=== PATIENT | male | born 1950 | race Caucasian/White ===

== ENCOUNTER 2016-12-29 10:18 | Emergency (ER) | payer MEDICARE ==
[~2016-12-29] VITALS: Ht 175.3 cm; Wt 127.0 kg
[~2016-12-29 10:18] MED LIST: CIPR250S2 PO; CLON0.5T3 PO; CLON1TAB3 PO; FURO-68 PO; GABA-586 PO; GLIP10TA13 PO; HYDR-2762 PO; HYDR25TA9 PO; INSU100C SQ; INSU100V SQ; LOSA100T6 PO; LOSA1TAB18 PO; METF750T2 PO; METO50TA2 PO; SIMV20TA3 PO
--- NOTE | 2016-12-29 11:18 | PHYS DOC ---
Past Medical History Past Medical History: A-Fib, Diabetes-Type II, High Cholesterol, Hypertension, Other Additional Past Medical Histor: chronic pain, neuropathy Past Surgical History: Angioplasty, Cholecystectomy Additional Past Surgical Histo: ADRENLIN GLAND REMOVED, RIGHT SHOULDER , CARDIAC ABLATION Alcohol Use: None Drug Use: None Adult General Chief Complaint Chief Complaint: CHEST PAIN HPI HPI Patient is a 66 year old male who presents with complaint of left shoulder and chest pain for the past 3 weeks. Patient states that he first noticed discomfort along his left side after he was using a drill at home while working on a door. Patient states that later that night he noticed numbness and tingling in the shoulder and hand. Patient states that the symptoms have been persistent throughout this time. Patient states that the symptoms seem to worsen at rest and go away with normal activity. Patient states that due to the length of time the symptoms have been present, he felt he needed to be seen to make sure that he didn't have any more worrisome problems. Patient states he has history of atrial fibrillation, type 2 diabetes mellitus, and hypertension. Patient follows a Dr. Arvizu for primary care. Patient denies any associated nausea, shortness of breath, or diaphoresis with his pain. Patient states that he has a prescription of hydrocodone for treatment of pain at home and states that this seems to help with his symptoms, however they do return when the medication wears off. Review of Systems Review of Systems Constitutional: Denies fever or chills [] Eyes: Denies change in visual acuity, redness, or eye pain [] HENT: Denies nasal congestion or sore throat [] Respiratory: Denies cough or shortness of breath [] Cardiovascular: Chest pain [] GI: Denies abdominal pain, nausea, vomiting, bloody stools or diarrhea [] : Denies dysuria or hematuria [] Musculoskeletal: Left shoulder pain [] Integument: Denies rash or skin lesions [] Neurologic: Denies headache, focal weakness or sensory changes [] Endocrine: Denies polyuria or polydipsia [] Current Medications Current Medications Current Medications Medications (Trade) Dose Ordered Sig/Daniel Start Time Stop Time Status Last Admin Dose Admin Aspirin (Children'S Aspirin) 324 mg 1X ONCE 12/29/16 11:30 12/29/16 11:31 DC 12/29/16 11:53 324 MG Allergies Allergies Allergies Coded Allergies Type Severity Reaction Last Updated Verified No Known Drug Allergies 04/10/14 No Physical Exam Physical Exam Constitutional: Alert, obese, afebrile, no acute distress. [] HENT: Normocephalic, atraumatic, bilateral external ears normal, oropharynx moist, no oral exudates, nose normal. [] Eyes: PERRLA, EOMI, conjunctiva normal, no discharge. [] Neck: Normal range of motion, no tenderness, supple, no stridor. [] Cardiovascular:Heart rate regular rhythm, no murmur [] Lungs & Thorax: Bilateral breath sounds clear to auscultation [] Abdomen: Bowel sounds normal, soft, no tenderness, no masses, no pulsatile masses. [] Skin: Warm, dry, no erythema, no rash. [] Back: No tenderness, no CVA tenderness. [] Extremities: No tenderness, no cyanosis, no clubbing, ROM intact, no edema. [] Neurologic: Alert and oriented X 3, normal motor function, normal sensory function, no focal deficits noted. [] Current Patient Data Vital Signs Vital Signs Date Time Temp Pulse Resp B/P Pulse Ox O2 Delivery O2 Flow Rate FiO2 12/29/16 13:30 91 22 122/70 97 Room Air 12/29/16 10:31 97.9 97.9 Lab Values Laboratory Tests Test 12/29/16 10:43 White Blood Count 13.2x10^3/uL (4.0-11.0) H Red Blood Count 5.11x10^6/uL (4.30-5.70) Hemoglobin 14.5g/dL (13.0-17.5) Hematocrit 44.6% (39.0-53.0) Mean Corpuscular Volume 87fL (79-100) Mean Corpuscular Hemoglobin 28pg (25-35) Mean Corpuscular Hemoglobin Concent 33g/dL (31-37) Red Cell Distribution Width 14.3% (11.5-14.5) Platelet Count 251x10^3/uL (140-400) Neutrophils (%) (Auto) 71% (31-73) Lymphocytes (%) (Auto) 20% (24-48) L Monocytes (%) (Auto) 6% (0-9) Eosinophils (%) (Auto) 2% (0-3) Basophils (%) (Auto) 1% (0-3) Neutrophils # (Auto) 9.4x10^3uL (1.8-7.7) H Lymphocytes # (Auto) 2.6x10^3/uL (1.0-4.8) Monocytes # (Auto) 0.8x10^3/uL (0.0-1.1) Eosinophils # (Auto) 0.3x10^3/uL (0.0-0.7) Basophils # (Auto) 0.1x10^3/uL (0.0-0.2) Sodium Level 139mmol/L (136-145) Potassium Level 4.1mmol/L (3.5-5.1) Chloride Level 102mmol/L (98-107) Carbon Dioxide Level 29mmol/L (21-32) Anion Gap 8 (6-14) Blood Urea Nitrogen 15mg/dL (8-26) Creatinine 0.8mg/dL (0.7-1.3) Estimated GFR (Cockcroft-Gault) 96.7 Glucose Level 210mg/dL (70-99) H Calcium Level 9.3mg/dL (8.5-10.1) Magnesium Level 1.9mg/dL (1.8-2.4) Total Bilirubin 0.6mg/dL (0.2-1.0) Direct Bilirubin 0.1mg/dL (0.0-0.2) Aspartate Amino Transferase (AST) 15U/L (15-37) Alanine Aminotransferase (ALT) 29U/L (16-63) Alkaline Phosphatase 58U/L (46-116) Creatine Kinase 169U/L (39-308) Creatine Kinase MB (Mass) 2.5ng/mL (0.0-3.6) Creatine Kinase MB Relative Index 1.5% (0-4) Troponin I Quantitative < 0.017ng/mL (0.000-0.055) BU-Aya-Z-Type Natriuretic Peptide 184pg/mL (0-124) H Total Protein 7.3g/dL (6.4-8.2) Albumin 3.7g/dL (3.4-5.0) Laboratory Tests 12/29/16 10:43 Laboratory Tests 12/29/16 10:43 EKG EKG Interpreted by me: Heart rate 72, sinus rhythm, occasional PACs, normal intervals, normal axis, no acute ST/T-wave abnormalities present [] Radiology/Procedures Radiology/Procedures [facility] [address] [place] [address] IMAGING REPORT Signed PATIENT: LUCILLE MCKENNA ACCOUNT: [id number] : 1950 LOCATION: ER AGE: 66 SEX: M EXAM STATUS: REG ER ORD. PHYSICIAN: ALE RADFORD MD REASON: left-sided chest and shoulder pain for 3 weeks PROCEDURE: PORTABLE CHEST 1V Exam: AP portable chest. History: Left-sided chest and shoulder pain for 3 weeks. Comparison: 09/04/2011. Findings: The heart and mediastinal structures are within normal limits for size. Lungs are without infiltrate. No pneumothorax or pleural effusion is appreciated. Old granulomatous disease of the chest is noted. Impression: 1. No acute cardiopulmonary process. DICTATED and SIGNED BY: LUCILLE PERSAUD MD DATE: 12/29/161125 CC: ALE RADFORD MD; GURU ARVIZU MD ~ [] Course & Med Decision Making Course & Med Decision Making Pertinent Labs and Imaging studies reviewed. (See chart for details) Patient was observed in the emergency department with no remarkable events reported. Patient's labwork does not reveal evidence of acute cardiac strain. I spoke with the patient's primary physician, Dr. Arvizu, who agreed that the patient's symptoms appear to be consistent with musculoskeletal etiology of pain. He recommended that the patient be started on 40 mg of prednisone daily for the next 3 days and asked that the patient follow-up in his office at 9:30 AM tomorrow for reevaluation. Spoke with patient regarding plan of care and he was in agreement at time of discharge. Advised return emergency department for any worsening symptoms. Dragon Disclaimer Dragon Disclaimer This electronic medical record was generated, in whole or in part, using a voice recognition dictation system. Departure Departure Impression: Primary Impression: Shoulder pain, left Additional Impression: Type 2 diabetes mellitus Disposition: HOME, SELF-CARE Condition: IMPROVED Referrals: GURU ARVIZU MD (PCP) Patient Instructions: Shoulder Pain Additional Instructions: Follow-up with Dr. Arvizu at 9:30 AM tomorrow morning. Return to the emergency department for any worsening symptoms. Scripts Prednisone 20 Mg Tablet1 Tab PO BID #6 TAB Prov:ALE RADFROD MD 12/29/16 Problem Qualifiers Primary Impression: Shoulder pain, left Chronicity: acute Qualified Code: M25.512 - Pain in left shoulder Additional Impression: Type 2 diabetes mellitus Diabetes mellitus complication status: with hyperglycemia Diabetes mellitus joint terminal attack controller insulin use: with joint terminal attack controller use Qualified Code: E11.65 - Type 2 diabetes mellitus with hyperglycemia ALE RADFORD MD Dec 29, 2016 11:18
[2016-12-29 11:21] LABS: BASO # 0.1 x10^3/uL (0.0-0.2); BASO % 1 % (0-3); EOS % 2 % (0-3); HEMATOCRIT 44.6 % (39.0-53.0); HEMOGLOBIN 14.5 g/dL (13.0-17.5); LYMPH # 2.6 x10^3/uL (1.0-4.8); LYMPH % 20 % (24-48); MEAN CORPUSCULAR HEMOGLOBIN 28 pg (25-35); MEAN CORPUSCULAR HGB CONC 33 g/dL (31-37); MEAN CORPUSCULAR VOLUME 87 fL (79-100); MONO % 6 % (0-9); NEUT % 71 % (31-73); PLATELET COUNT 251 x10^3/uL (140-400); RED BLOOD COUNT 5.11 x10^6/uL (4.30-5.70); RED CELL DISTRIBUTION WIDTH 14.3 % (11.5-14.5); WHITE BLOOD COUNT 13.2 x10^3/uL (4.0-11.0)
--- NOTE | 2016-12-29 11:29 | RAD ---
Exam: AP portable chest. History: Left-sided chest and shoulder pain for 3 weeks. Comparison: 09/04/2011. Findings: The heart and mediastinal structures are within normal limits for size. Lungs are without infiltrate. No pneumothorax or pleural effusion is appreciated. Old granulomatous disease of the chest is noted. Impression: 1. No acute cardiopulmonary process.
[2016-12-29 11:30] LABS: CALCIUM 9.3 mg/dL (8.5-10.1); CREATININE 0.8 mg/dL (0.7-1.3); GFR 96.7; POTASSIUM 4.1 mmol/L (3.5-5.1)
[2016-12-29] MEDS ORDERED: ASPIRIN CHEWABLE 81 MG TABLET. PO ONE (11:30)
[2016-12-29 11:36] LABS: ALBUMIN 3.7 g/dL (3.4-5.0); DIRECT BILIRUBIN 0.1 mg/dL (0.0-0.2); MAGNESIUM 1.9 mg/dL (1.8-2.4); TOTAL BILIRUBIN 0.6 mg/dL (0.2-1.0); TOTAL PROTEIN 7.3 g/dL (6.4-8.2)
[2016-12-29 11:44] LABS: CKMB INDEX 1.5 % (0-4); CKMB MASS 2.5 ng/mL (0.0-3.6)
--- NOTE | 2016-12-29 11:52 | EKG ---
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
[2016-12-29] MEDS ORDERED: PRED20TA PO (12:55)
[2016-12-29 13:30] VITALS: BP 122/70
== END 2016-12-29 13:35 | disposition home or self-care (01) ==
LOC: ER 10:18
DX: M25.512 Pain in left shoulder (principal); E11.40 Type 2 diabetes mellitus with diabetic neuropathy, unspecified; R07.89 Other chest pain; R20.2 Paresthesia of skin; R20.0 Anesthesia of skin; E78.00 Pure hypercholesterolemia, unspecified; G89.29 Other chronic pain; I10 Essential (primary) hypertension; I48.91 Unspecified atrial fibrillation; Z90.49 Acquired absence of other specified parts of digestive tract; Z95.5 Presence of coronary angioplasty implant and graft; Z79.82 Long term (current) use of aspirin
CPT/HCPCS: 36415; 71010; 80048; 80076; 82553; 83735; 83880; 84484; 85027; 93005; 99285-25

== ENCOUNTER 2017-01-10 21:43 | Emergency (ER) | payer MEDICARE ==
[~2017-01-10 21:43] MED LIST changes: +PRED20TA PO
[2017-01-10] MEDS ORDERED: FENTANYL PF 100 MCG/2 ML VIAL. IV PRN (22:15)
--- NOTE | 2017-01-10 22:18 | PHYS DOC ---
Past Medical History Past Medical History: A-Fib, Diabetes-Type II, High Cholesterol, Hypertension, Other Additional Past Medical Histor: chronic pain, neuropathy Past Surgical History: Angioplasty, Cholecystectomy Additional Past Surgical Histo: ADRENLIN GLAND REMOVED, RIGHT SHOULDER , CARDIAC ABLATION Alcohol Use: None Drug Use: None Adult General Chief Complaint Chief Complaint: CHEST PAIN HPI HPI Patient is a 66 year old male who presents with complaint of left sided shoulder and chest pain. Patient has history of chronic atrial fibrillation, hypertension, and type 2 diabetes mellitus. The patient was seen in the emergency department 12 days ago for similar symptoms and was diagnosed with left shoulder pain. The patient was treated with prednisone which she stated initially helped his symptoms. Patient followed up with his primary doctor in the next day who continued him on therapy. Patient states however after finishing the medication his symptoms came back. Patient is having pain that goes from his left jaw and neck towards his left shoulder and arm. Upon questioning of pain in the chest, the patient states he is not having any substernal pain but is having tightness along the left side of his chest that radiates towards his shoulder. Patient states that his pain improves when he props up his arm. Patient stated that due to his symptoms not improving he went to the [facility] where he was told that he had atrial fibrillation and was told to come into the emergency department for evaluation. Patient is not having any abdominal pain or nausea currently. Patient states that he has having intermittent sweating and feels very anxious at this time. Patient rates pain as 5 out of 10 currently. Review of Systems Review of Systems Constitutional: Anxiety, Denies fever or chills [] Eyes: Denies change in visual acuity, redness, or eye pain [] HENT: Denies nasal congestion or sore throat [] Respiratory: Denies cough or shortness of breath [] Cardiovascular: Chest pain, denies edema [] GI: Denies abdominal pain, nausea, vomiting, bloody stools or diarrhea [] : Denies dysuria or hematuria [] Musculoskeletal: Left neck and shoulder pain [] Integument: Denies rash or skin lesions [] Neurologic: Denies headache, focal weakness or sensory changes [] Current Medications Current Medications Current Medications Medications (Trade) Dose Ordered Sig/Daniel Start Time Stop Time Status Last Admin Dose Admin Aspirin (Children'S Aspirin) 324 mg 1X ONCE 01/10/17 22:30 01/10/17 22:31 DC 01/10/17 23:24 324 MG Fentanyl Citrate 50 mcg 50 mcg PRN Q15MIN PRN 01/10/17 22:15 01/11/17 22:14 01/10/17 23:25 50 MCG Lorazepam (Ativan) 1 mg 1X ONCE 01/10/17 22:30 01/10/17 22:31 DC 01/10/17 23:26 1 MG Ondansetron HCl (Zofran) 4 mg 1X ONCE 01/10/17 22:30 01/10/17 22:31 DC 01/10/17 23:25 4 MG Sodium Chloride (Iv Sodium Chloride 0.9% 1000ml Bag) 1,000 ml @ 100 mls/hr Q10H 01/10/17 22:30 01/11/17 08:29 01/10/17 23:24 100 MLS/HR Allergies Allergies Allergies Coded Allergies Type Severity Reaction Last Updated Verified No Known Drug Allergies 04/10/14 No Physical Exam Physical Exam Constitutional: Alert, obese, afebrile, appears anxious. [] HENT: Normocephalic, atraumatic, bilateral external ears normal, oropharynx moist, no oral exudates, nose normal. [] Eyes: PERRLA, EOMI, conjunctiva normal, no discharge. [] Neck: Normal range of motion, no tenderness, supple, no stridor. [] Cardiovascular:Heart rate regular rhythm, no murmur [] Lungs & Thorax: Bilateral breath sounds clear to auscultation [] Abdomen: Bowel sounds normal, soft, no tenderness, no masses, no pulsatile masses. [] Skin: Warm, dry, no erythema, no rash. [] Back: No tenderness, no CVA tenderness. [] Extremities: Left shoulder without obvious deformity, posterior and lateral left shoulder tenderness to palpation, no cyanosis, no clubbing, ROM intact, no edema. [] Neurologic: Alert and oriented X 3, normal motor function, normal sensory function, no focal deficits noted. [] Current Patient Data Vital Signs Vital Signs Date Time Temp Pulse Resp B/P Pulse Ox O2 Delivery O2 Flow Rate FiO2 01/10/17 23:52 90 16 120/62 95 01/10/17 23:25 Room Air 01/10/17 21:50 98.4 98.4 Lab Values Laboratory Tests Test 01/10/17 22:40 White Blood Count 16.6x10^3/uL (4.0-11.0) H Red Blood Count 5.02x10^6/uL (4.30-5.70) Hemoglobin 14.2g/dL (13.0-17.5) Hematocrit 43.3% (39.0-53.0) Mean Corpuscular Volume 86fL (79-100) Mean Corpuscular Hemoglobin 28pg (25-35) Mean Corpuscular Hemoglobin Concent 33g/dL (31-37) Red Cell Distribution Width 14.0% (11.5-14.5) Platelet Count 248x10^3/uL (140-400) Neutrophils (%) (Auto) 72% (31-73) Lymphocytes (%) (Auto) 18% (24-48) L Monocytes (%) (Auto) 7% (0-9) Eosinophils (%) (Auto) 2% (0-3) Basophils (%) (Auto) 1% (0-3) Neutrophils # (Auto) 11.9x10^3uL (1.8-7.7) H Lymphocytes # (Auto) 3.0x10^3/uL (1.0-4.8) Monocytes # (Auto) 1.2x10^3/uL (0.0-1.1) H Eosinophils # (Auto) 0.3x10^3/uL (0.0-0.7) Basophils # (Auto) 0.1x10^3/uL (0.0-0.2) Sodium Level 139mmol/L (136-145) Potassium Level 4.5mmol/L (3.5-5.1) Chloride Level 101mmol/L (98-107) Carbon Dioxide Level 30mmol/L (21-32) Anion Gap 8 (6-14) Blood Urea Nitrogen 16mg/dL (8-26) Creatinine 0.9mg/dL (0.7-1.3) Estimated GFR (Cockcroft-Gault) 84.4 Glucose Level 184mg/dL (70-99) H Calcium Level 9.1mg/dL (8.5-10.1) Magnesium Level 1.8mg/dL (1.8-2.4) Total Bilirubin 0.4mg/dL (0.2-1.0) Direct Bilirubin 0.1mg/dL (0.0-0.2) Aspartate Amino Transferase (AST) 17U/L (15-37) Alanine Aminotransferase (ALT) 28U/L (16-63) Alkaline Phosphatase 76U/L (46-116) Creatine Kinase 164U/L (39-308) Creatine Kinase MB (Mass) 2.1ng/mL (0.0-3.6) Creatine Kinase MB Relative Index 1.3% (0-4) Troponin I Quantitative < 0.017ng/mL (0.000-0.055) ML-Kvc-Z-Type Natriuretic Peptide 105pg/mL (0-124) Total Protein 7.0g/dL (6.4-8.2) Albumin 3.7g/dL (3.4-5.0) Laboratory Tests 01/10/17 22:40 Laboratory Tests 01/10/17 22:40 EKG EKG Interpreted by me: Heart rate 85, sinus rhythm, multiple PACs, no acute ST/T- wave abnormalities present [] Radiology/Procedures Radiology/Procedures One view AP chest x-ray interpreted by me: No infiltrate, no effusions, normal cardiac silhouette [] Course & Med Decision Making Course & Med Decision Making Pertinent Labs and Imaging studies reviewed. (See chart for details) Patient was given fentanyl and Zofran for symptoms. Patient's lab work does not reveal any evidence of cardiac ischemia. The patient's symptoms continue to appear consistent with musculoskeletal pain. The patient feels much better after treatment at this time. The patient will be started on Medrol Dosepak and advised follow-up with his primary doctor in the next 2 days. Advised return emergency department for any worsening symptoms. Patient voiced understanding and in agreement with treatment plan. Dragon Disclaimer Dragon Disclaimer This electronic medical record was generated, in whole or in part, using a voice recognition dictation system. Departure Departure Impression: Primary Impression: Shoulder pain, left Disposition: 01 HOME, SELF-CARE Condition: IMPROVED Referrals: GURU ARVIZU MD (PCP) Patient Instructions: Shoulder Pain Additional Instructions: Follow-up with Dr. Arvizu in 2 days. Return to emergency department for any worsening symptoms. Scripts Methylprednisolone (Medrol)4 Mg Tab.ds.pk1 Pkg PO UD #1 PKG Prov:ALE RADFORD MD 01/11/17 Problem Qualifiers Primary Impression: Shoulder pain, left Chronicity: acute Qualified Code: M25.512 - Pain in left shoulder ALE RADFORD MD Jan 10, 2017 22:18
[2017-01-10] MEDS ORDERED: IV NORMAL SALINE 1000ML BAG 1,000 ML IV SCH (22:30)
[2017-01-10] MEDS ORDERED: ONDANSETRON PF 4 MG/2 ML VIAL. IV ONE (22:30)
[2017-01-10] MEDS ORDERED: ASPIRIN CHEWABLE 81 MG TABLET. PO ONE (22:30)
[2017-01-10] MEDS ORDERED: LORAZEPAM 2 MG/ML VIAL. IV ONE (22:30)
[2017-01-10 22:47] LABS: BASO # 0.1 x10^3/uL (0.0-0.2); BASO % 1 % (0-3); EOS % 2 % (0-3); HEMATOCRIT 43.3 % (39.0-53.0); HEMOGLOBIN 14.2 g/dL (13.0-17.5); LYMPH % 18 % (24-48); MEAN CORPUSCULAR HEMOGLOBIN 28 pg (25-35); MEAN CORPUSCULAR HGB CONC 33 g/dL (31-37); MEAN CORPUSCULAR VOLUME 86 fL (79-100); MONO % 7 % (0-9); NEUT % 72 % (31-73); PLATELET COUNT 248 x10^3/uL (140-400); RED BLOOD COUNT 5.02 x10^6/uL (4.30-5.70); WHITE BLOOD COUNT 16.6 x10^3/uL (4.0-11.0)
[2017-01-10 23:01] LABS: CALCIUM 9.1 mg/dL (8.5-10.1); CREATININE 0.9 mg/dL (0.7-1.3); GFR 84.4; POTASSIUM 4.5 mmol/L (3.5-5.1)
[2017-01-10 23:07] LABS: ALBUMIN 3.7 g/dL (3.4-5.0); DIRECT BILIRUBIN 0.1 mg/dL (0.0-0.2); MAGNESIUM 1.8 mg/dL (1.8-2.4); TOTAL BILIRUBIN 0.4 mg/dL (0.2-1.0)
[2017-01-10 23:30] LABS: CKMB INDEX 1.3 % (0-4); CKMB MASS 2.1 ng/mL (0.0-3.6)
[2017-01-10 23:52] VITALS: BP 120/62
[2017-01-11] MEDS ORDERED: METH4TAB2 PO (01:01)
--- NOTE | 2017-01-11 06:28 | EKG ---
[facility] [address] [place] [address] Test Date: 2017-01-10 Test Time: 21:51:00 Pat Name: LUCILLE MCKENNA Department: Room: Gender: M [employer] Teacher: : 1950 Requested By: ALE RADFORD Order Number: [id number] Reading MD: Doreen Colin Measurements Intervals [place] Rate: 85 P: 27 IN: 172 QRS: 57 QRSD: 84 T: 34 QT: 364 QTc: 433 Interpretive Statements SINUS RHYTHM NORMAL ECG RI6.01 No previous ECG available for comparison Electronically Signed On 01-16-2017 12:38:40 CDT by Doreen Colin
--- NOTE | 2017-01-11 07:52 | RAD ---
Portable chest, 01/10/2017: History: Chest pain, shoulder pain The heart size and pulmonary vascularity are normal. A calcified granuloma is present left base. No acute infiltrates are seen. There is no evidence of pleural fluid. IMPRESSION: No acute cardiopulmonary abnormality is detected.
== END 2017-01-11 01:20 | disposition home or self-care (01) ==
LOC: ER 21:43
DX: M25.512 Pain in left shoulder (principal); R07.89 Other chest pain; G89.29 Other chronic pain; E78.00 Pure hypercholesterolemia, unspecified; I10 Essential (primary) hypertension; I48.91 Unspecified atrial fibrillation; Z98.61 Coronary angioplasty status; E11.40 Type 2 diabetes mellitus with diabetic neuropathy, unspecified; Z90.49 Acquired absence of other specified parts of digestive tract
CPT/HCPCS: 36415; 71010; 80048; 80076; 82553; 83735; 83880; 84484; 85027; 93005; 96361; 96374; 96375; 99285; J2060; J2405; J3010; J7030

== ENCOUNTER 2017-11-22 20:19 | Emergency (ER) | payer MEDICARE ==
[2017-11-22] MEDS: BENZONATATE 100 MG CAPSULE. PO (22:37)
[2017-11-22] MEDS: cefTRIAXone IM 1 GM VIAL IM (22:37)
== END 2017-11-22 22:46 | disposition home or self-care (01) ==
LOC: ER 20:19
DX: J18.9 Pneumonia, unspecified organism (principal); E11.40 Type 2 diabetes mellitus with diabetic neuropathy, unspecified; I48.91 Unspecified atrial fibrillation; E78.00 Pure hypercholesterolemia, unspecified; G89.29 Other chronic pain; I10 Essential (primary) hypertension; Z95.5 Presence of coronary angioplasty implant and graft; Z90.49 Acquired absence of other specified parts of digestive tract
CPT/HCPCS: 71046; 96372; 99284-25; J0696

== ENCOUNTER → 2017-12-15 | Outpatient (CLI) | payer MEDICARE | END | disposition home or self-care (01) | LOC: KCIC 08:22 | DX: J84.10 Pulmonary fibrosis, unspecified (principal); R05 Cough | CPT/HCPCS: 71046 ==

== ENCOUNTER 2018-10-22 16:40 | Emergency (ER) | payer MEDICARE ==
[~2018-10-22] VITALS: Ht 175.3 cm; Wt 122.5 kg
[~2018-10-22 16:40] MED LIST changes: +APIX5TAB PO; +AZIT250T6 PO; +CLON0.5T11 PO; -CLON0.5T3 PO; +CLON1TAB11 PO; -CLON1TAB3 PO; +DILT240C82 PO; -GABA-586 PO; +GABA300C18 PO; +GUAI118L20 PO; +HYDR-2145 PO; -HYDR-2762 PO; +HYDR-2765 PO; -HYDR25TA9 PO; +LOSA100T14 PO; -LOSA100T6 PO; -LOSA1TAB18 PO; +LOSA1TAB25 PO; +METH4TAB2 PO; -METO50TA2 PO; +METO50TA6 PO
--- NOTE | 2018-10-22 19:09 | PHYS DOC ---
Past Medical History Past Medical History: A-Fib, Anxiety, Diabetes-Type II, High Cholesterol, Hypertension, Other Additional Past Medical Histor: chronic pain, neuropathy (AMANDEEP GODINEZ APRN) Past Surgical History: Angioplasty, Cholecystectomy Additional Past Surgical Histo: ADRENLIN GLAND REMOVED, RIGHT SHOULDER , CARDIAC ABLATION (AMANDEEP GODINEZ APRN) Alcohol Use: None Drug Use: None (AMANDEEP GODINEZ APRN) Adult General Chief Complaint Chief Complaint: SHORTNESS OF BREATH HPI HPI Patient is a 67 year old male who presents with comes in complaining of cough, nasal congestion, chest pressure, palpitations. Patient states the cough, nasal congestion and cold-like symptoms have been going on for the last 3 weeks. Patient states here in the last couple days he felt the palpitations and he's had some mid chest pressure that does not radiate. He states he finished his doxycycline that he was put on 1 week ago. Patient states that he is feeling better but this cough he is very concerned about because he is afraid that back in A. fib. He has a history of A. fib, and SVT that he had to be converted, diabetes, hypertension, anxiety. Patient is very anxious. Afebrile. (AMANDEEP GODINEZ APRN) Review of Systems Review of Systems Constitutional: Denies fever or chills [] Eyes: Denies change in visual acuity, redness, or eye pain [] HENT: Denies nasal congestion or sore throat [] Respiratory: Denies cough or shortness of breath [] Cardiovascular: mid chest pressure that is not reproducible GI: Denies abdominal pain, nausea, vomiting, bloody stools or diarrhea [] : Denies dysuria or hematuria [] Musculoskeletal: Denies back pain or joint pain [] Integument: Denies rash or skin lesions [] Neurologic: Denies headache, focal weakness or sensory changes [] All other systems were reviewed and found to be within normal limits, except as documented in this note. (AMANDEEP GODINEZ APRN) Current Medications Current Medications Current Medications Medications (Trade) Dose Ordered Sig/Daniel Start Time Stop Time Status Last Admin Dose Admin Lorazepam (Ativan) 0.5 mg 1X ONCE 10/22/18 19:15 10/22/18 19:16 DC 10/22/18 19:24 0.5 MG Sotalol HCl (Betapace) 120 mg 1X ONCE 10/22/18 19:15 10/22/18 19:16 DC 10/22/18 19:24 120 MG (LUCILLE LAO DO) Allergies Allergies Allergies Coded Allergies Type Severity Reaction Last Updated Verified No Known Drug Allergies 04/10/14 No (LUCILLE LAO DO) Physical Exam Physical Exam Constitutional: Well developed, well nourished, no acute distress, non-toxic appearance. [] HENT: Normocephalic, atraumatic, bilateral external ears normal, oropharynx moist, no oral exudates, nose normal. [] Eyes: PERRLA, EOMI, conjunctiva normal, no discharge. [] Neck: Normal range of motion, no tenderness, supple, no stridor. [] Cardiovascular:Heart rate regular rhythm, no murmur [] Lungs & Thorax: Bilateral breath sounds clear to auscultation [] Abdomen: Bowel sounds normal, soft, no tenderness, no masses, no pulsatile masses. [] Skin: Warm, dry, no erythema, no rash. [] Back: No tenderness, no CVA tenderness. [] Extremities: No tenderness, no cyanosis, no clubbing, ROM intact, no edema. [] Neurologic: Alert and oriented X 3, normal motor function, normal sensory function, no focal deficits noted. [] Psychologic: Affect normal, judgement normal, mood normal. [] (AMANDEEP GODINEZ APRN) Current Patient Data Vital Signs Vital Signs Date Time Temp Pulse Resp B/P (MAP) Pulse Ox O2 Delivery O2 Flow Rate FiO2 10/22/18 20:54 80 131/66 (87) 98 Room Air 10/22/18 17:50 98.2 20 98.2 (LUCILLE LAO DO) Lab Values Laboratory Tests Test 10/22/18 18:55 White Blood Count 16.1 x10^3/uL (4.0-11.0) H Red Blood Count 4.92 x10^6/uL (4.30-5.70) Hemoglobin 14.2 g/dL (13.0-17.5) Hematocrit 42.3 % (39.0-53.0) Mean Corpuscular Volume 86 fL (79-100) Mean Corpuscular Hemoglobin 29 pg (25-35) Mean Corpuscular Hemoglobin Concent 34 g/dL (31-37) Red Cell Distribution Width 14.1 % (11.5-14.5) Platelet Count 291 x10^3/uL (140-400) Neutrophils (%) (Auto) 78 % (31-73) H Lymphocytes (%) (Auto) 14 % (24-48) L Monocytes (%) (Auto) 5 % (0-9) Eosinophils (%) (Auto) 2 % (0-3) Basophils (%) (Auto) 1 % (0-3) Neutrophils # (Auto) 12.5 x10^3uL (1.8-7.7) H Lymphocytes # (Auto) 2.3 x10^3/uL (1.0-4.8) Monocytes # (Auto) 0.9 x10^3/uL (0.0-1.1) Eosinophils # (Auto) 0.3 x10^3/uL (0.0-0.7) Basophils # (Auto) 0.2 x10^3/uL (0.0-0.2) Prothrombin Time 14.2 SEC (11.7-14.0) H Prothrombin Time INR 1.1 (0.8-1.1) Urine Collection Type Unknown Urine Color Yellow Urine Clarity Clear Urine pH 5.5 Urine Specific [place] 1.025 Urine Protein Negative mg/dL (NEG-TRACE) Urine Glucose (UA) Negative mg/dL (NEG) Urine Ketones (Stick) 40 mg/dL (NEG) Urine Blood Negative (NEG) Urine Nitrite Negative (NEG) Urine Bilirubin Negative (NEG) Urine Urobilinogen Dipstick 0.2 mg/dL (0.2 mg/dL) Urine Leukocyte Esterase Negative (NEG) Urine RBC 0 /HPF (0-2) Urine WBC 0 /HPF (0-4) Urine Squamous Epithelial Cells None /LPF Urine Bacteria 0 /HPF (0-FEW) Urine Mucus Mod /LPF Sodium Level 134 mmol/L (136-145) L Potassium Level 3.9 mmol/L (3.5-5.1) Chloride Level 98 mmol/L (98-107) Carbon Dioxide Level 24 mmol/L (21-32) Anion Gap 12 (6-14) Blood Urea Nitrogen 21 mg/dL (8-26) Creatinine 0.8 mg/dL (0.7-1.3) Estimated GFR (Cockcroft-Gault) 96.4 BUN/Creatinine Ratio 26 (6-20) H Glucose Level 190 mg/dL (70-99) H Calcium Level 9.1 mg/dL (8.5-10.1) Total Bilirubin 0.6 mg/dL (0.2-1.0) Aspartate Amino Transferase (AST) 23 U/L (15-37) Alanine Aminotransferase (ALT) 41 U/L (16-63) Alkaline Phosphatase 75 U/L (46-116) Troponin I Quantitative 0.021 ng/mL (0.000-0.055) EM-Fyi-Q-Type Natriuretic Peptide 179 pg/mL (0-124) H Total Protein 7.2 g/dL (6.4-8.2) Albumin 3.8 g/dL (3.4-5.0) Albumin/Globulin Ratio 1.1 (1.0-1.7) Laboratory Tests 10/22/18 18:55 Laboratory Tests 10/22/18 18:55 (LUCILLE LAO DO) Lab Values Laboratory Tests Test 10/22/18 18:55 White Blood Count 16.1 x10^3/uL (4.0-11.0) H Red Blood Count 4.92 x10^6/uL (4.30-5.70) Hemoglobin 14.2 g/dL (13.0-17.5) Hematocrit 42.3 % (39.0-53.0) Mean Corpuscular Volume 86 fL (79-100) Mean Corpuscular Hemoglobin 29 pg (25-35) Mean Corpuscular Hemoglobin Concent 34 g/dL (31-37) Red Cell Distribution Width 14.1 % (11.5-14.5) Platelet Count 291 x10^3/uL (140-400) Neutrophils (%) (Auto) 78 % (31-73) H Lymphocytes (%) (Auto) 14 % (24-48) L Monocytes (%) (Auto) 5 % (0-9) Eosinophils (%) (Auto) 2 % (0-3) Basophils (%) (Auto) 1 % (0-3) Neutrophils # (Auto) 12.5 x10^3uL (1.8-7.7) H Lymphocytes # (Auto) 2.3 x10^3/uL (1.0-4.8) Monocytes # (Auto) 0.9 x10^3/uL (0.0-1.1) Eosinophils # (Auto) 0.3 x10^3/uL (0.0-0.7) Basophils # (Auto) 0.2 x10^3/uL (0.0-0.2) Prothrombin Time 14.2 SEC (11.7-14.0) H Prothrombin Time INR 1.1 (0.8-1.1) Urine Collection Type Unknown Urine Color Yellow Urine Clarity Clear Urine pH 5.5 Urine Specific [place] 1.025 Urine Protein Negative mg/dL (NEG-TRACE) Urine Glucose (UA) Negative mg/dL (NEG) Urine Ketones (Stick) 40 mg/dL (NEG) Urine Blood Negative (NEG) Urine Nitrite Negative (NEG) Urine Bilirubin Negative (NEG) Urine Urobilinogen Dipstick 0.2 mg/dL (0.2 mg/dL) Urine Leukocyte Esterase Negative (NEG) Urine RBC 0 /HPF (0-2) Urine WBC 0 /HPF (0-4) Urine Squamous Epithelial Cells None /LPF Urine Bacteria 0 /HPF (0-FEW) Urine Mucus Mod /LPF Sodium Level 134 mmol/L (136-145) L Potassium Level 3.9 mmol/L (3.5-5.1) Chloride Level 98 mmol/L (98-107) Carbon Dioxide Level 24 mmol/L (21-32) Anion Gap 12 (6-14) Blood Urea Nitrogen 21 mg/dL (8-26) Creatinine 0.8 mg/dL (0.7-1.3) Estimated GFR (Cockcroft-Gault) 96.4 BUN/Creatinine Ratio 26 (6-20) H Glucose Level 190 mg/dL (70-99) H Calcium Level 9.1 mg/dL (8.5-10.1) Total Bilirubin 0.6 mg/dL (0.2-1.0) Aspartate Amino Transferase (AST) 23 U/L (15-37) Alanine Aminotransferase (ALT) 41 U/L (16-63) Alkaline Phosphatase 75 U/L (46-116) Troponin I Quantitative 0.021 ng/mL (0.000-0.055) PS-Gcr-Z-Type Natriuretic Peptide 179 pg/mL (0-124) H Total Protein 7.2 g/dL (6.4-8.2) Albumin 3.8 g/dL (3.4-5.0) Albumin/Globulin Ratio 1.1 (1.0-1.7) Laboratory Tests 10/22/18 18:55 Laboratory Tests 10/22/18 18:55 (AMANDEEP GODINEZ APRN) EKG EKG SINUS RHYTHM, NO STEMI Interpretation Time: [address] ESCAMILLA (AMANDEEP GODINEZ APRN) Radiology/Procedures Radiology/Procedures CHEST XRAY (AMANDEEP GODINEZ APRN) Radiology/Procedures Preliminary interpretation by ED physician: No acute process (LUCILLE LAO DO) Course & Med Decision Making Course & Med Decision Making Patient is a 67 year old male who presents with comes in complaining of cough, nasal congestion, chest pressure, palpitations. Patient states the cough, nasal congestion and cold-like symptoms have been going on for the last 3 weeks. Patient states here in the last couple days he felt the palpitations and he's had some mid chest pressure that does not radiate. He states he finished his doxycycline that he was put on 1 week ago. Patient states that he is feeling better but this cough he is very concerned about because he is afraid that back in A. fib. He has a history of A. fib, and SVT that he had to be converted, diabetes, hypertension, anxiety. Patient is very anxious. Afebrile. Alert and oriented. Very anxious and is given Ativan 0.5mg in the ED. Patient states he knows that something is wrong and that he should not be so coughing with this. Patient denies coughing up any mucus. Patient denies fever, nausea, vomiting, shortness of air, back pain. Patient is very anxious and states that he is supposed to be taking his Sotalol and states he just cannot miss that medication. I have ordered that medication for him here in the ED. Patient states 3 weeks ago when cold symptoms started he was tested for the flu and it was negative. Abdomen is soft and nontender. Lungs are clear to auscultation in all lobes. Patient has no extremity edema. Patient is ambulatory with a steady gait. Patient's chest x-ray is read by Dr. Lao in shows probable bronchitis and when it is compared to his last x-ray it is similar. Patient has agreed to a Medrol Dosepak and an inhaler. He has agreed to call his doctor Wednesday to let him know what is going on. Patient is stable and in no distress. (GRETCHENAMANDEEP Talley APRN) Dragon Disclaimer Dragon Disclaimer This electronic medical record was generated, in whole or in part, using a voice recognition dictation system. (GRETCHENAMANDEEP Talley APRN) Departure Departure Impression: Primary Impression: Acute bronchitis Disposition: HOME, SELF-CARE Condition: STABLE Referrals: GURU ARVIZU MD (PCP) Patient Instructions: Bronchitis Additional Instructions: Call your doctor on Wednesday to let them know what is going on medications or not taking. Take medications as prescribed. Scripts Albuterol Sulfate (Proair Hfa) 8.5 Gm Hfa.aer.ad 1 PUFF INH PRN Q6HRS PRN for SHORTNESS OF BREATH, #1 INHALER Prov: GERISMITHA RECINOSOKSANA Talley APRN 10/22/18 Methylprednisolone (MEDROL) 4 Mg Tab.ds.pk 1 PKG PO UD, #1 PKG Prov: GRETCHENAMANDEEP Talley APRN 10/22/18 Attending Signature Attending Signature I have reviewed the PA/MINE SURVEYOR's note and plan of care. I was available for consultation as needed during the patient's visit in the emergency department. I agree with the clinical impression, plan, and disposition. (LUCILLE LAO DO) Problem Qualifiers Primary Impression: Acute bronchitis Bronchitis organism: unspecified organism Qualified Codes: J20.9 - Acute bronchitis, unspecified AMANDEEP GODINEZ APRN Oct 22, 2018 19:08 LUCILLE LAO DO Oct 23, 2018 01:01
[2018-10-22] MEDS ORDERED: SOTALOL 80 MG TABLET. PO ONE (19:15)
[2018-10-22 19:20] LABS: BASO # 0.2 x10^3/uL (0.0-0.2); BASO % 1 % (0-3); EOS # 0.3 x10^3/uL (0.0-0.7); EOS % 2 % (0-3); HEMATOCRIT 42.3 % (39.0-53.0); HEMOGLOBIN 14.2 g/dL (13.0-17.5); LYMPH # 2.3 x10^3/uL (1.0-4.8); LYMPH % 14 % (24-48); MEAN CORPUSCULAR HEMOGLOBIN 29 pg (25-35); MEAN CORPUSCULAR HGB CONC 34 g/dL (31-37); MEAN CORPUSCULAR VOLUME 86 fL (79-100); MONO # 0.9 x10^3/uL (0.0-1.1); MONO % 5 % (0-9); NEUT # 12.5 x10^3uL (1.8-7.7); NEUT % 78 % (31-73); PLATELET COUNT 291 x10^3/uL (140-400); RED BLOOD COUNT 4.92 x10^6/uL (4.30-5.70); RED CELL DISTRIBUTION WIDTH 14.1 % (11.5-14.5); WHITE BLOOD COUNT 16.1 x10^3/uL (4.0-11.0)
[2018-10-22 19:31] LABS: CALCIUM 9.1 mg/dL (8.5-10.1); CREATININE 0.8 mg/dL (0.7-1.3); GFR 96.4; POTASSIUM 3.9 mmol/L (3.5-5.1)
[2018-10-22 19:32] LABS: PROTHROMBIN TIME PATIENT 14.2 SEC (11.7-14.0)
[2018-10-22 19:38] LABS: ALBUMIN 3.8 g/dL (3.4-5.0); ALBUMIN/GLOBULIN RATIO 1.1 (1.0-1.7); TOTAL BILIRUBIN 0.6 mg/dL (0.2-1.0); TOTAL PROTEIN 7.2 g/dL (6.4-8.2)
[2018-10-22 19:43] LABS: BILIRUBIN,URINE NEGATIVE (NEG); CLARITY,URINE CLEAR; COLOR,URINE YELLOW; NITRITE,URINE NEGATIVE (NEG); PH,URINE 5.5; PROTEIN,URINE NEGATIVE (NEG-TRACE); UROBILINOGEN,URINE 0.2 mg/dL (0.2 mg/dL)
[2018-10-22 20:02] LABS: BACTERIA,URINE 0 /HPF (0-FEW); RBC,URINE 0 /HPF (0-2); WBC,URINE 0 /HPF (0-4)
[2018-10-22 20:54] VITALS: BP 131/66
[2018-10-22] MEDS ORDERED: ALBU2.5V8 INH (21:10)
[2018-10-22] MEDS ORDERED: METH4TAB2 PO (21:10)
--- NOTE | 2018-10-23 08:37 | RAD ---
CHEST PA LATERAL Clinical indications: Flu x 3 weeks cough. COMPARISON: June 21, 2018. Findings: Old granulomatous disease is seen. No acute lung infiltrate or pleural effusion or pulmonary edema or lung mass or pneumothorax is seen. The heart size, pulmonary vasculature, mediastinum and both alena are unremarkable. The osseous structures appear intact. Impression: No acute radiographic abnormality is seen. Electronically signed by: Rajiv Tolliver MD (10/23/2018 8:33 AM) [facility]
--- NOTE | 2018-10-23 10:15 | EKG ---
[facility] [address] [place] [address] Test Date: 2018-10-22 Test Time: 18:09:12 Pat Name: LUCILLE MCKENNA Department: Room: Gender: M Distribution Engineer: CLIFF : [id number] Requested By: AMANDEEP GODINEZ Order Number: [id number] Reading MD: Measurements Intervals [place] Rate: 83 P: 54 DC: 180 QRS: 36 QRSD: 82 T: 21 QT: 378 QTc: 445 Interpretive Statements SINUS RHYTHM NORMAL ECG RI6.01 No previous ECG available for comparison
== END 2018-10-22 21:40 | disposition home or self-care (01) ==
LOC: ER 16:40
DX: J20.9 Acute bronchitis, unspecified (principal); I48.91 Unspecified atrial fibrillation; E78.00 Pure hypercholesterolemia, unspecified; I10 Essential (primary) hypertension; E11.40 Type 2 diabetes mellitus with diabetic neuropathy, unspecified; G89.29 Other chronic pain; Z95.5 Presence of coronary angioplasty implant and graft
CPT/HCPCS: 36415; 71046; 80053; 81001; 83880; 84484; 85025; 85610; 93005; 96374; 99284; J2060

== ENCOUNTER → 2019-02-08 | Outpatient (CLI) | payer MEDICARE ==
[~2019-02-08] MED LIST changes: +ALBU2.5V8 INH; +CONTRAST GIVEN. MC PRN; +IOHEXOL 240 MG/ML 50ML VIAL. PO ONE; +IOHEXOL 300 MG/ML 100ML VIAL. IV ONE
--- NOTE | 2019-02-08 14:35 | RAD ---
CT abdomen pelvis Wo contrast dated 02/08/2019. Comparison made to 12/29/2010. Clinical data indication: Lower abdominal pain for 3 to 4 years. TECHNIQUE: Contiguous axial imaging of the abdomen and pelvis performed after the administration of 75 cc Omnipaque 300. One or more of the following individualized dose reduction techniques were utilized for this examination: 1. Automated exposure control 2. Adjustment of the mA and/or kV according to patient size 3. Use of iterative reconstruction technique FINDINGS: Limited images of lung bases are clear. Heart size within normal limits. No pleural or pericardial effusion. Coronary artery calcifications. There are a few prominent reticular nodular markings in the left lower lobe with associated calcified granuloma. No pleural or pericardial effusion. Diffuse low-density of the liver, compatible with fatty infiltration. No apparent mass. Biliary tree normal in caliber. Gallbladder surgically absent. Spleen is normal in size. Pancreas, right adrenal gland unremarkable. The left adrenal gland is surgically absent. There is a circumscribed low-density focus at the midpole left kidney that measures 1.37 m in size with Hounsfield value of 20, increased in size from a [address] Kidneys are otherwise symmetric. No hydronephrosis. Partially opacified GI tract normal in caliber and contour. Focal zone of wall thickening involving the right colon, new from prior study. This extends for about 7 cm in length to the level of the ileocecal valve. The appendix is normal in caliber. There is some hazy inflammatory stranding in the central mesentery, unchanged. There are a few scattered diverticula within the distal colon. Images of pelvis show nondistended urinary bladder. Mild diffuse bladder wall thickening. Prostate gland mildly enlarged. No free fluid or lymphadenopathy. Bone windows show no acute findings. Multilevel spondylosis. IMPRESSION: 1. Suspected short zone of wall thickening involving the right colon could be related to mild colitis. An underlying mass cannot be excluded. Correlate with recent colonoscopy results. 2. Indeterminate low-density focus at the midpole left kidney, increased in size from 2011 exam. Ultrasound may provide additional information. 3. Status post left adrenalectomy and cholecystectomy. 4. Normal appendix. 5. Hazy inflammatory stranding in the central mesentery, nonspecific but unchanged prior exams. 6. Mild fatty infiltration the liver. Electronically signed by: Alexander Bolden MD (02/08/2019 2:32 PM) [facility]
== END | disposition home or self-care (01) ==
LOC: CT 10:30
PROVIDERS: ATTEND Family Medicine
DX: K76.0 Fatty (change of) liver, not elsewhere classified (principal); K57.30 Diverticulosis of large intestine without perforation or abscess without bleeding; I25.10 Atherosclerotic heart disease of native coronary artery without angina pectoris; J84.10 Pulmonary fibrosis, unspecified; R91.1 Solitary pulmonary nodule; M47.819 Spondylosis without myelopathy or radiculopathy, site unspecified; I10 Essential (primary) hypertension; Z79.01 Long term (current) use of anticoagulants; E11.9 Type 2 diabetes mellitus without complications; Z90.49 Acquired absence of other specified parts of digestive tract; Z90.89 Acquired absence of other organs
CPT/HCPCS: 74177; Q9966; Q9967

== ENCOUNTER → 2019-03-01 | Outpatient (CLI) | payer MEDICARE ==
[~2019-03-01] MED LIST changes: -CONTRAST GIVEN. MC PRN; -IOHEXOL 240 MG/ML 50ML VIAL. PO ONE; -IOHEXOL 300 MG/ML 100ML VIAL. IV ONE
--- NOTE | 2019-03-01 11:39 | RAD ---
EXAM: RENAL/RETROPERITONEAL ULTRASOUND. HISTORY: Left renal mass. COMPARISON: 02/08/2019. FINDINGS: Ultrasound of the kidneys, bladder and retroperitoneum was performed. The right kidney measures 14.1 cm. Cortical thickness and echogenicity are preserved. There is no hydronephrosis. The left kidney measures 13.5 cm. Cortical thickness and echogenicity are preserved. There is no hydronephrosis. The finding of concern on prior CT corresponds with a cyst in the interpolar region measuring 1.6 x 1.6 cm. It contains a single thin septation and appears benign. Images of the bladder reveal mild wall thickening. IMPRESSION: 1. The left renal lesion of concern is consistent with a benign septated cyst. No suspicious renal lesions are seen. 2. Bladder wall thickening. Correlate for chronic outlet obstruction or inflammation. Electronically signed by: Aura Correa MD (03/01/2019 11:36 AM) [facility]
== END | disposition home or self-care (01) ==
LOC: US 08:11
PROVIDERS: ATTEND Family Medicine
DX: N28.89 Other specified disorders of kidney and ureter (principal)
CPT/HCPCS: 76770

== ENCOUNTER → 2019-05-05 | Day surgery (SDC) | payer MEDICARE ==
[~2019-05-05] MED LIST changes: +FAMO20TA5 PO; +HYDROmorphone 2 MG/ML VIAL IV PRN; +IV RINGERS,LACTATED 1000ML 1,000 ML IV SCH; +LIDOCAINE 1% PF 2 ML VIAL. ID PRN; +LIDOCAINE 2% PF 5 ML VIAL. ONE; +MORPHINE SULFATE 2 MG/ML VIAL. IV PRN; +ONDANSETRON PF 4 MG/2 ML VIAL. IV PRN; +PROCHLORPERAZINE 10 MG/2 ML VIAL. IV PRN; +PROPOFOL 40 ML IV ONE; +SOTA80TA48 PO; +fentaNYL PF VIAL 100 MCG/2 ML VIAL IV PRN
[2019-05-05 07:38] VITALS: BP 134/73
== END ==
LOC: ENDOS 06:02
PROVIDERS: ATTEND Internal Medicine Gastroenterology
DX: K57.30 Diverticulosis of large intestine without perforation or abscess without bleeding (principal); K64.0 First degree hemorrhoids; K29.70 Gastritis, unspecified, without bleeding; E78.00 Pure hypercholesterolemia, unspecified; E11.9 Type 2 diabetes mellitus without complications; I48.91 Unspecified atrial fibrillation; F41.9 Anxiety disorder, unspecified; Z98.890 Other specified postprocedural states; Z79.84 Long term (current) use of oral hypoglycemic drugs
CPT/HCPCS: 45378; J2001; J2704

== ENCOUNTER → 2019-08-01 | Outpatient (CLI) | payer MEDICARE ==
[2019-05-05 07:38] VITALS: BP 134/73
[~2019-08-01] MED LIST changes: +CLON-77 PO; -CLON0.5T11 PO; -CLON1TAB11 PO; +CLONAZEPAM1 MG PO; +DILT240C33 PO; -DILT240C82 PO; -HYDROmorphone 2 MG/ML VIAL IV PRN; -INSU100V SQ; +INSU100V6 SQ; -IV RINGERS,LACTATED 1000ML 1,000 ML IV SCH; -LIDOCAINE 1% PF 2 ML VIAL. ID PRN; -LIDOCAINE 2% PF 5 ML VIAL. ONE; +METF500T16 PO; -METF750T2 PO; +METF750T39 PO; -MORPHINE SULFATE 2 MG/ML VIAL. IV PRN; -ONDANSETRON PF 4 MG/2 ML VIAL. IV PRN; -PROCHLORPERAZINE 10 MG/2 ML VIAL. IV PRN; -PROPOFOL 40 ML IV ONE; +SIMV20TA18 PO; -SIMV20TA3 PO; -fentaNYL PF VIAL 100 MCG/2 ML VIAL IV PRN
--- NOTE | 2019-08-01 13:20 | RAD ---
EXAM: Lumbar spine, 3 views. HISTORY: Pain. COMPARISON: None. FINDINGS: 3 views of the lumbar spine are obtained. There is no significant listhesis. There is degenerative endplate remodeling with anterior predominant spurring at all levels. There is facet arthropathy predominantly at the lumbosacral junction. IMPRESSION: 1. Multilevel degenerative change, described above. 2. No acute osseous finding. Electronically signed by: Mari Hayward MD (08/01/2019 1:17 PM) [facility]
== END | disposition home or self-care (01) ==
LOC: RAD 10:58
PROVIDERS: ATTEND Family Medicine
DX: M47.816 Spondylosis without myelopathy or radiculopathy, lumbar region (principal); M12.88 Other specific arthropathies, not elsewhere classified, other specified site
CPT/HCPCS: 72100

== ENCOUNTER → 2019-10-10 | Outpatient (CLI) | payer MEDICARE ==
[2019-08-07 15:59] VITALS: BP 132/70
[~2019-10-10] MED LIST changes: +DEXA4TAB PO
--- NOTE | 2019-10-10 13:24 | KCIC ---
ABDOMEN COMPLETE Realtime grayscale images of the abdomen with color and pulsed doppler utilized as appropriate. History: Abdominal pain Comparison: CT 02/08/2019. Findings: The liver demonstrates increased echogenicity. No intrahepatic biliary ductal dilatation or mass is seen. Cholecystectomy. The common bile duct is normal in diameter and measures 0.5 cm. Portal Vein flow is hepatopetal. The pancreas is normal in appearance, although the tail is not well visualized. The aorta and IVC are normal diameter where visualized. The right kidney is normal in appearance, measuring 13.9 cm in length. The left kidney is normal in appearance, measuring 13.2 cm in length. In the interpolar region of the left kidney is a simple cyst measuring to 2.0 cm. No hydronephrosis or perinephric fluid are seen bilaterally. The spleen is normal in appearance and measures 11.3 cm. Impression: 1. Diffuse hepatic steatosis. 2. Cholecystectomy. Electronically signed by: Fidel Cohen MD (10/10/2019 1:21 PM) [facility]
== END | disposition home or self-care (01) ==
LOC: KCIC US 10:42
PROVIDERS: ATTEND Family Medicine
DX: K76.0 Fatty (change of) liver, not elsewhere classified (principal); N28.1 Cyst of kidney, acquired; Z90.49 Acquired absence of other specified parts of digestive tract
CPT/HCPCS: 76700

== ENCOUNTER 2019-10-12 09:26 | Emergency (ER) | payer MEDICARE ==
[~2019-10-12 09:26] MED LIST changes: -DEXA4TAB PO
--- NOTE | 2019-10-12 10:16 | PHYS DOC ---
Past Medical History Past Medical History: A-Fib, Anxiety, Diabetes-Type II, High Cholesterol, Hypertension, Other Additional Past Medical Histor: chronic pain, neuropathy Past Surgical History: Angioplasty, Cholecystectomy Additional Past Surgical Histo: ADRENLIN GLAND REMOVED, RIGHT SHOULDER , CAR DIAC ABLATION Alcohol Use: None Drug Use: None Adult General Chief Complaint Chief Complaint: ABDOMINAL PAIN HPI HPI Patient is a 68 year old male] who presents with [lower abdominal pain. Patient reports he has had this discomfort for the past 8 months. States it does seem to be increasing the but worse over the last several weeks. Reports he has problems urinating, has followed up the [facility], and is awaiting a TURP. Patient does report he is able to urinate, however he does have a lot of leakage. Reports is also had softer bowel movements and normal, reports he's only had diarrhea. Denies any blood in his stools. Denies any shortness of breath. Denies any nausea, vomiting, chest discomfort. Reports he is anxious, which he frequently has. Reports his blood sugar has been under control mostly, averaging 200. ] Review of Systems Review of Systems Constitutional: Denies fever or chills [] Eyes: Denies change in visual acuity, redness, or eye pain [] HENT: Denies nasal congestion or sore throat [] Respiratory: Denies cough or shortness of breath [] Cardiovascular: No additional information not addressed in HPI [] GI: Denies nausea, vomiting, bloody stools. Does report generalized lower abdo flower pain, left side worse than right, does report softer stools, denies any blood in his stool [] : Denies any blood in his urine. Reports he does have urine leakage, does have problems urinating.[] Musculoskeletal: Denies back pain or joint pain [] Integument: Denies rash or skin lesions [] Neurologic: Denies headache, focal weakness or sensory changes [] Endocrine: Denies polyuria or polydipsia [] All other systems were reviewed and found to be within normal limits, except as documented in this note. Current Medications Current Medications Current Medications Medications (Trade) Dose Ordered Sig/Daniel Start Time Stop Time Status Last Admin Dose Admin Info (CONTRAST GIVEN -- Rx MONITORING) 1 each PRN DAILY PRN 10/12/19 11:15 10/14/19 11:14 Iohexol (Omnipaque 300 Mg/ml) 75 ml 1X ONCE 10/12/19 11:15 10/12/19 11:16 DC 10/12/19 11:18 75 ML Allergies Allergies Allergies Coded Allergies Type Severity Reaction Last Updated Verified No Known Drug Allergies 05/05/19 No Physical Exam Physical Exam Constitutional: Well developed, well nourished, no acute distress, non-toxic ap pearance. Anxious[] Eyes: PERRLA, EOMI, conjunctiva normal, no discharge. [] Neck: Normal range of motion, no tenderness, supple, no stridor. [] Cardiovascular:Heart rate regular rhythm, no murmur [] Lungs & Thorax: Bilateral breath sounds clear to auscultation [] Abdomen: Bowel sounds normal, soft, no tenderness, no masses, no pulsatile masses. Round, distended, tender started over left lower quadrant, suprapubic [] Skin: Warm, dry, no erythema, no rash. [] Back: No tenderness, no CVA tenderness. [] Extremities: No tenderness, no cyanosis, no clubbing, ROM intact, no edema. [] Neurologic: Alert and oriented X 3, normal motor function, normal sensory function, no focal deficits noted. [] Psychologic: Affect normal, judgement normal, mood normal. [] Current Patient Data Vital Signs Vital Signs Date Time Temp Pulse Resp B/P (MAP) Pulse Ox O2 Delivery O2 Flow Rate FiO2 10/12/19 09:44 98.3 71 20 151/79 (103) 98 Room Air 98.3 Lab Values Laboratory Tests Test 10/12/19 10:20 10/12/19 10:40 Urine Collection Type Unknown Urine Color Yellow Urine Clarity Clear Urine pH 7.0 Urine Specific [place] <=1.005 Urine Protein Negative mg/dL (NEG-TRACE) Urine Glucose (UA) Negative mg/dL (NEG) Urine Ketones (Stick) Negative mg/dL (NEG) Urine Blood Negative (NEG) Urine Nitrite Negative (NEG) Urine Bilirubin Negative (NEG) Urine Urobilinogen Dipstick 1.0 mg/dL (0.2 mg/dL) Urine Leukocyte Esterase Negative (NEG) Urine RBC 0 /HPF (0-2) Urine WBC 0 /HPF (0-4) Urine Squamous Epithelial Cells Few /LPF Urine Bacteria 0 /HPF (0-FEW) White Blood Count 11.6 x10^3/uL (4.0-11.0) H Red Blood Count 4.99 x10^6/uL (4.30-5.70) Hemoglobin 14.4 g/dL (13.0-17.5) Hematocrit 43.2 % (39.0-53.0) Mean Corpuscular Volume 87 fL (79-100) Mean Corpuscular Hemoglobin 29 pg (25-35) Mean Corpuscular Hemoglobin Concent 33 g/dL (31-37) Red Cell Distribution Width 14.3 % (11.5-14.5) Platelet Count 253 x10^3/uL (140-400) Neutrophils (%) (Auto) 71 % (31-73) Lymphocytes (%) (Auto) 21 % (24-48) L Monocytes (%) (Auto) 6 % (0-9) Eosinophils (%) (Auto) 2 % (0-3) Basophils (%) (Auto) 0 % (0-3) Neutrophils # (Auto) 8.2 x10^3/uL (1.8-7.7) H Lymphocytes # (Auto) 2.4 x10^3/uL (1.0-4.8) Monocytes # (Auto) 0.7 x10^3/uL (0.0-1.1) Eosinophils # (Auto) 0.2 x10^3/uL (0.0-0.7) Basophils # (Auto) 0.0 x10^3/uL (0.0-0.2) Prothrombin Time 15.0 SEC (11.7-14.0) H Prothrombin Time INR 1.2 (0.8-1.1) H Sodium Level 138 mmol/L (136-145) Potassium Level 4.2 mmol/L (3.5-5.1) Chloride Level 102 mmol/L (98-107) Carbon Dioxide Level 31 mmol/L (21-32) Anion Gap 5 (6-14) L Blood Urea Nitrogen 17 mg/dL (8-26) Creatinine 0.9 mg/dL (0.7-1.3) Estimated GFR (Cockcroft-Gault) 83.9 BUN/Creatinine Ratio 19 (6-20) Glucose Level 145 mg/dL (70-99) H Calcium Level 9.4 mg/dL (8.5-10.1) Total Bilirubin 0.7 mg/dL (0.2-1.0) Aspartate Amino Transferase (AST) 18 U/L (15-37) Alanine Aminotransferase (ALT) 29 U/L (16-63) Alkaline Phosphatase 60 U/L (46-116) Troponin I Quantitative < 0.017 ng/mL (0.000-0.055) Total Protein 6.9 g/dL (6.4-8.2) Albumin 4.0 g/dL (3.4-5.0) Albumin/Globulin Ratio 1.4 (1.0-1.7) Laboratory Tests 10/12/19 10:40 Laboratory Tests 10/12/19 10:40 EKG EKG [] Radiology/Procedures Radiology/Procedures IV CONTRAST: Administered ORAL CONTRAST: Not administered DLP 1520.4 mGycm COMPARISON: CT abdomen and pelvis with IV contrast of March 07, 2015 FINDINGS: LOWER CHEST: 5 mm calcified left lower lobe nodule. LIVER: Unremarkable BILIARY SYSTEM: Gallbladder is surgically absent. Bile ducts are not dilated. PANCREAS: Unremarkable SPLEEN: Unremarkable ADRENALS: Atrophic left adrenal gland with mild compensatory right adrenal hypertrophy. KIDNEYS & URETERS: Unremarkable BLADDER: Unremarkable REPRODUCTIVE ORGANS: Prostate gland measures 5.3 cm. GASTROINTESTINAL: The stomach, small bowel, and colon are unremarkable. The appendix is normal. MESENTERY/PERITONEUM/RETROPERITONEUM: Mild mesenteric misting, primarily around the vessels of the small bowel. This is similar to prior. VASCULAR: Unremarkable LYMPH NODES: No adenopathy OSSEOUS & SOFT TISSUES: Tiny sclerotic focus with some surrounding lucency in the right femoral neck. This could be a bone island. Also, a left iliac 1.7 cm sclerotic rimmed lucent centered lesion is noted, likely a benign fibro-osseous lesion. These are both stable from over 4 years ago. 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 . Electronically signed by: Dariela Kent MD (10/12/2019 12:03 PM) [facility][] Course & Med Decision Making Course & Med Decision Making Pertinent Labs and Imaging studies reviewed. (See chart for details) [Noted urine on bladder scan of 341 ml Reviewed results with patient, patient says he feels better, patient will follow up with his primary care and follow-up with his urology for his further urology issues. Discussed use of prednisone for panniculitis. Patient reports that he has had issues with prednisone the past, with [prescription for dexamethasone For inflammation. Patient to follow up with Dr Castano next week ] French Disclaimer French Disclaimer This electronic medical record was generated, in whole or in part, using a voice recognition dictation system. Departure Departure Impression: Primary Impression: Panniculitis Additional Impression: Abdominal pain Disposition: HOME, SELF-CARE Condition: STABLE Referrals: LUCILLE CASTANO MD (PCP) Patient Instructions: Abdominal Pain, Urinary Retention, Acute, Male Additional Instructions: As we discussed, follow-up with urology to have your TURP done. The prostate enlargement is likely was causing you to have some urinary leakage. We are sending prescription for steroids which should help with her abdominal discomfort. Take this as prescribed. Try to follow up with Dr. Castano next week. Scripts Dexamethasone (DEXAMETHASONE) 4 Mg Tablet 4 TAB PO DAILY, #7 TAB Prov: UMAIR BERG APRN 10/12/19 Problem Qualifiers Additional Impression: Abdominal pain Abdominal location: lower abdomen, unspecified Qualified Codes: R10.30 - Lower abdominal pain, unspecified UMAIR BERG APRN Oct 12, 2019 10:16
[2019-10-12 10:39] LABS: BILIRUBIN,URINE NEGATIVE (NEG); CLARITY,URINE CLEAR; COLOR,URINE YELLOW; NITRITE,URINE NEGATIVE (NEG); PROTEIN,URINE NEGATIVE (NEG-TRACE)
[2019-10-12 10:47] LABS: BASO % 0 % (0-3); EOS # 0.2 x10^3/uL (0.0-0.7); EOS % 2 % (0-3); HEMATOCRIT 43.2 % (39.0-53.0); HEMOGLOBIN 14.4 g/dL (13.0-17.5); LYMPH # 2.4 x10^3/uL (1.0-4.8); LYMPH % 21 % (24-48); MEAN CORPUSCULAR HEMOGLOBIN 29 pg (25-35); MEAN CORPUSCULAR HGB CONC 33 g/dL (31-37); MEAN CORPUSCULAR VOLUME 87 fL (79-100); MONO # 0.7 x10^3/uL (0.0-1.1); MONO % 6 % (0-9); NEUT # 8.2 x10^3/uL (1.8-7.7); NEUT % 71 % (31-73); PLATELET COUNT 253 x10^3/uL (140-400); RED BLOOD COUNT 4.99 x10^6/uL (4.30-5.70); RED CELL DISTRIBUTION WIDTH 14.3 % (11.5-14.5); WHITE BLOOD COUNT 11.6 x10^3/uL (4.0-11.0)
[2019-10-12 10:51] LABS: BACTERIA,URINE 0 /HPF (0-FEW); RBC,URINE 0 /HPF (0-2); SQUAMOUS EPITHELIAL CELL,UR FEW /LPF; WBC,URINE 0 /HPF (0-4)
[2019-10-12 11:01] LABS: CALCIUM 9.4 mg/dL (8.5-10.1); CREATININE 0.9 mg/dL (0.7-1.3); GFR 83.9; POTASSIUM 4.2 mmol/L (3.5-5.1)
[2019-10-12 11:04] LABS: ALBUMIN/GLOBULIN RATIO 1.4 (1.0-1.7); TOTAL BILIRUBIN 0.7 mg/dL (0.2-1.0); TOTAL PROTEIN 6.9 g/dL (6.4-8.2)
[2019-10-12] MEDS ORDERED: CONTRAST GIVEN. MC PRN (11:15)
[2019-10-12] MEDS ORDERED: IOHEXOL 300 MG/ML 100ML VIAL. IV ONE (11:15)
--- NOTE | 2019-10-12 12:05 | RAD ---
EXAM: CT Abdomen and Pelvis with IV contrast INDICATION: Lower abdominal pain TECHNIQUE: Multi-detector row CT images were acquired from the lung bases through the abdomen and pelvis with the use of IV contrast. Sagittal and coronal images were acquired from the transaxial data. All CT scans performed at this facility utilize dose optimization techniques as appropriate to the exam, including the following: Automated exposure control and adjustment of the mA and/or KV according to patient size (this includes techniques or standardized protocols for targeted exams where dose is indication/reason for exam). IV CONTRAST: Administered ORAL CONTRAST: Not administered DLP 1520.4 mGycm COMPARISON: CT abdomen and pelvis with IV contrast of March 07, 2015 FINDINGS: LOWER CHEST: 5 mm calcified left lower lobe nodule. LIVER: Unremarkable BILIARY SYSTEM: Gallbladder is surgically absent. Bile ducts are not dilated. PANCREAS: Unremarkable SPLEEN: Unremarkable ADRENALS: Atrophic left adrenal gland with mild compensatory right adrenal hypertrophy. KIDNEYS & URETERS: Unremarkable BLADDER: Unremarkable REPRODUCTIVE ORGANS: Prostate gland measures 5.3 cm. GASTROINTESTINAL: The stomach, small bowel, and colon are unremarkable. The appendix is normal. MESENTERY/PERITONEUM/RETROPERITONEUM: Mild mesenteric misting, primarily around the vessels of the small bowel. This is similar to prior. VASCULAR: Unremarkable LYMPH NODES: No adenopathy OSSEOUS & SOFT TISSUES: Tiny sclerotic focus with some surrounding lucency in the right femoral neck. This could be a bone island. Also, a left iliac 1.7 cm sclerotic rimmed lucent centered lesion is noted, likely a benign fibro-osseous lesion. These are both stable from over 4 years ago. 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 . Electronically signed by: Dariela Kent MD (10/12/2019 12:03 PM) [facility]
[2019-10-12 12:30] VITALS: BP 117/71
[2019-10-12] MEDS ORDERED: DEXA4TAB PO (12:43)
== END 2019-10-12 13:10 | disposition home or self-care (01) ==
LOC: ER 09:26
DX: M79.3 Panniculitis, unspecified (principal); R10.84 Generalized abdominal pain; R10.30 Lower abdominal pain, unspecified; I48.91 Unspecified atrial fibrillation; E78.00 Pure hypercholesterolemia, unspecified; I10 Essential (primary) hypertension; E11.40 Type 2 diabetes mellitus with diabetic neuropathy, unspecified; G89.29 Other chronic pain; Z90.49 Acquired absence of other specified parts of digestive tract; Z95.5 Presence of coronary angioplasty implant and graft
CPT/HCPCS: 36415; 74177; 80053; 81001; 84484; 85025; 85610; 99285; Q9967

== ENCOUNTER 2019-12-10 12:53 | Emergency (ER) | payer MEDICARE ==
[~2019-12-10] VITALS: Ht 175.3 cm; Wt 122.7 kg
[~2019-12-10 12:53] MED LIST changes: +DEXA4TAB PO
[2019-12-10] MEDS ORDERED: IV NORMAL SALINE 1000ML BAG 1,000 ML IV ONE (13:45)
[2019-12-10 13:51] LABS: BARBITURATES NEG (NEG); BENZODIAZEPINES NEG (NEG); CANNABINOIDS NEG (NEG); COCAINE NEG (NEG); METHADONE NEG (NEG); OPIATES POS (NEG); PHENCYCLIDINE NEG (NEG)
[2019-12-10 13:52] LABS: AMPHETAMINE/METHAMPHETAMINE NEG (NEG)
--- NOTE | 2019-12-10 13:52 | RAD ---
EXAM: Chest, single view. HISTORY: Shortness of air. COMPARISON: 08/06/2019 FINDINGS: A frontal view of the chest is obtained. There is no infiltrate, pleural effusion or pneumothorax. The heart is normal in size. IMPRESSION: No acute pulmonary finding. Electronically signed by: Mari Hayward MD (12/10/2019 1:49 PM) [facility]
--- NOTE | 2019-12-10 13:57 | RAD ---
EXAM: Head CT without contrast. HISTORY: Mental status changes. TECHNIQUE: Computed tomographic images of the head were obtained without contrast. *One or more of the following individualized dose reduction techniques were utilized for this examination: 1. Automated exposure control. 2. Adjustment of the mA and/or kV according to patient size. 3. Use of iterative reconstruction technique. COMPARISON: None. FINDINGS: There is no acute or subacute extra-axial or intraparenchymal hemorrhage. There is no mass effect or midline shift. There is no hydrocephalus. There are areas of decreased attenuation within the cerebral white matter, nonspecific and likely related to chronic small vessel disease. The visualized portions of the orbits, paranasal sinuses and mastoid air cells are unremarkable. No suspicious calvarial lesion is seen. IMPRESSION: No acute intracranial finding. Note is made that MRI is more sensitive for acute infarction. Electronically signed by: Mari Hayward MD (12/10/2019 1:55 PM) [facility]
--- NOTE | 2019-12-10 14:09 | PHYS DOC ---
Past Medical History Past Medical History: A-Fib, Anxiety, Diabetes-Type II, High Cholesterol, Hypertension, Other Additional Past Medical Histor: chronic pain,neuropathy,PANIC ATTACKS,SLEEP APNEA Past Surgical History: Angioplasty, Cholecystectomy Additional Past Surgical Histo: ADRENLIN GLAND REMOVED,RIGHT SHOULDER,CARDIAC ABLATION Smoking Status: Never Smoker Alcohol Use: None Drug Use: None Adult General Chief Complaint Chief Complaint: MULTIPLE COMPLAINTS HPI HPI Patient is a 69 year old male with a history of diabetes type 2, hypertension, A. fib on Eliquis and a beta-amber, anxiety, who presents to the ED today with multiple complaints. Patient is complaining of not feeling normal for two weeks. He states he has hot flashes that come and go, he is feeling achy all over, he states whenever he closes his eyes he sees "things that do not exist". He is also complaining of cough and runny nose, symptoms for 2 weeks. . He reports he went to his PCPs office on Wednesday was evaluated and sent home. He states right now he feels dehydrated and would like some IV fluids. Patient denies any suicidal or homicidal ideations. Patient also reports being seen at different facilities in town in the last 1 month for the same symptoms Review of Systems Review of Systems Constitutional: Reports not feeling well, reports being dehydrated. Denies fever or chills [] Eyes: Denies change in visual acuity, redness, or eye pain [] HENT: Reports nasal congestion denies sore throat [] Respiratory: Denies cough, denies shortness of breath [] Cardiovascular: No additional information not addressed in HPI [] GI: Denies abdominal pain, nausea, vomiting, bloody stools or diarrhea [] : Denies dysuria or hematuria [] Musculoskeletal: Denies back pain or joint pain [] Integument: Denies rash or skin lesions [] Neurologic: Denies headache, focal weakness or sensory changes [] Psych: Reports seeing things that do not exist, reports anxiety All other systems were reviewed and found to be within normal limits, except as documented in this note. Current Medications Current Medications Current Medications Medications (Trade) Dose Ordered Sig/Daniel Start Time Stop Time Status Last Admin Dose Admin Sodium Chloride 1,000 ml @ 1,000 mls/hr 1X ONCE 12/10/19 13:45 12/10/19 14:44 DC 3/15/20 14:08 1,000 MLS/HR Allergies Allergies Allergies Coded Allergies Type Severity Reaction Last Updated Verified No Known Drug Allergies 05/05/19 No Physical Exam Physical Exam Constitutional: Well developed, well nourished, no acute distress, non-toxic appearance. [] HENT: Normocephalic, atraumatic, bilateral external ears normal, oropharynx moist, no oral exudates, nose normal. [] Eyes: PERRLA, EOMI, conjunctiva normal, no discharge. [] Neck: Normal range of motion, no tenderness, supple, no stridor. [] Cardiovascular:Heart rate regular rhythm, no murmur [] Lungs & Thorax: Bilateral breath sounds clear to auscultation [] Abdomen: Bowel sounds normal, soft, no tenderness, no masses, no pulsatile masses. [] Skin: Warm, dry, no erythema, no rash. [] Back: No tenderness, no CVA tenderness. [] Extremities: No tenderness, no cyanosis, no clubbing, ROM intact, no edema. [] Neurologic: Alert and oriented X 3, normal motor function, normal sensory function, no focal deficits noted. Cranial nerves II through XII intact Psychologic: Patient appears very anxious. He is talking very fast. Current Patient Data Vital Signs Vital Signs Date Time Temp Pulse Resp B/P (MAP) Pulse Ox O2 Delivery O2 Flow Rate FiO2 12/10/19 13:01 98.3 87 20 154/82 (106) 99 Room Air 98.3 Lab Values Laboratory Tests Test 12/10/19 13:04 12/10/19 14:00 12/10/19 14:55 Urine Opiates Screen Pos (NEG) Urine Methadone Screen Neg (NEG) Urine Barbiturates Neg (NEG) Urine Phencyclidine Screen Neg (NEG) Urine Amphetamine/Methamphetamine Neg (NEG) Urine Benzodiazepines Screen Neg (NEG) Urine Cocaine Screen Neg (NEG) Urine Cannabinoids Screen Neg (NEG) Urine Ethyl Alcohol Neg (NEG) White Blood Count 13.6 x10^3/uL (4.0-11.0) H Red Blood Count 4.94 x10^6/uL (4.30-5.70) Hemoglobin 14.4 g/dL (13.0-17.5) Hematocrit 42.6 % (39.0-53.0) Mean Corpuscular Volume 86 fL (79-100) Mean Corpuscular Hemoglobin 29 pg (25-35) Mean Corpuscular Hemoglobin Concent 34 g/dL (31-37) Red Cell Distribution Width 14.7 % (11.5-14.5) H Platelet Count 247 x10^3/uL (140-400) Neutrophils (%) (Auto) 74 % (31-73) H Lymphocytes (%) (Auto) 18 % (24-48) L Monocytes (%) (Auto) 6 % (0-9) Eosinophils (%) (Auto) 2 % (0-3) Basophils (%) (Auto) 1 % (0-3) Neutrophils # (Auto) 10.0 x10^3/uL (1.8-7.7) H Lymphocytes # (Auto) 2.4 x10^3/uL (1.0-4.8) Monocytes # (Auto) 0.8 x10^3/uL (0.0-1.1) Eosinophils # (Auto) 0.3 x10^3/uL (0.0-0.7) Basophils # (Auto) 0.1 x10^3/uL (0.0-0.2) Prothrombin Time 14.5 SEC (11.7-14.0) H Prothrombin Time INR 1.2 (0.8-1.1) H Sodium Level 138 mmol/L (136-145) Potassium Level 5.0 mmol/L (3.5-5.1) Chloride Level 102 mmol/L (98-107) Carbon Dioxide Level 30 mmol/L (21-32) Anion Gap 6 (6-14) Blood Urea Nitrogen 10 mg/dL (8-26) Creatinine 0.9 mg/dL (0.7-1.3) Estimated GFR (Cockcroft-Gault) 83.7 BUN/Creatinine Ratio 11 (6-20) Glucose Level 120 mg/dL (70-99) H Calcium Level 9.2 mg/dL (8.5-10.1) Magnesium Level 1.9 mg/dL (1.8-2.4) Total Bilirubin 0.6 mg/dL (0.2-1.0) Aspartate Amino Transferase (AST) 28 U/L (15-37) Alanine Aminotransferase (ALT) 38 U/L (16-63) Alkaline Phosphatase 61 U/L (46-116) Creatine Kinase 178 U/L (39-308) Creatine Kinase MB (Mass) 3.8 ng/mL (0.0-3.6) H Creatine Kinase MB Relative Index 2.1 % (0-4) Troponin I Quantitative < 0.017 ng/mL (0.000-0.055) CW-[id number]-Z-Type Natriuretic Peptide 511 pg/mL (0-124) H Total Protein 7.4 g/dL (6.4-8.2) Albumin 3.9 g/dL (3.4-5.0) Albumin/Globulin Ratio 1.1 (1.0-1.7) Lipase 41 U/L (73-393) L Thyroid Stimulating Hormone (TSH) 2.042 uIU/mL (0.358-3.74) Laboratory Tests 12/10/19 14:00 Laboratory Tests 12/10/19 14:55 EKG EKG [address] Ramirez Afib HR 65 no STEMI-reports chronic Afib.[] Radiology/Procedures Radiology/Procedures []PROCEDURE: PORTABLE CHEST 1V EXAM: Chest, single view. HISTORY: Shortness of air. COMPARISON: 08/06/2019 FINDINGS: A frontal view of the chest is obtained. There is no infiltrate, pleural effusion or pneumothorax. The heart is normal in size. IMPRESSION: No acute pulmonary finding. Electronically signed by: Mari Singh MD (12/10/2019 1:49 PM) [facility] DICTATED and SIGNED BY: MARI SINGH MD DATE: 12/10/19 1349 PROCEDURE: CT HEAD WO CONTRAST EXAM: Head CT without contrast. HISTORY: Mental status changes. TECHNIQUE: Computed tomographic images of the head were obtained without contrast. *One or more of the following individualized dose reduction techniques were utilized for this examination: 1. Automated exposure control. 2. Adjustment of the mA and/or kV according to patient size. 3. Use of iterative reconstruction technique. COMPARISON: None. FINDINGS: There is no acute or subacute extra-axial or intraparenchymal hemorrhage. There is no mass effect or midline shift. There is no hydrocephalus. There are areas of decreased attenuation within the cerebral white matter, nonspecific and likely related to chronic small vessel disease. The visualized portions of the orbits, paranasal sinuses and mastoid air cells are unremarkable. No suspicious calvarial lesion is seen. IMPRESSION: No acute intracranial finding. Note is made that MRI is more sensitive for acute infarction. Electronically signed by: Mari Singh MD (12/10/2019 1:55 PM) [facility] DICTATED and SIGNED BY: MARI SINGH MD DATE: 12/10/19 1855 Course & Med Decision Making Course & Med Decision Making Pertinent Labs and Imaging studies reviewed. (See chart for details) This is a 69-year-old male patient presenting to the ED today with multiple complaints including hot flashes, not feeling normal, anxious, seeing things that do not exist. Labs are negative for any acute findings, CT of the head is negative, chest x-ray is negative. Patient was seen by the PCP on Wednesday for the same symptoms. Apparently he has been seen at multiple hospitals in the last 1 month for the same symptoms. Marni from [facility] came and talked to patient. He was discharged to home. Follow- up with his own PCP in 1 to 2 weeks. Dragon Disclaimer Dragon Disclaimer This electronic medical record was generated, in whole or in part, using a voice recognition dictation system. Departure Departure Impression: Primary Impression: Anxiety Disposition: 01 HOME, SELF-CARE Condition: STABLE Referrals: LUCILLE CORTES MD (PCP) follow up this week Patient Instructions: Anxiety and Panic Attacks, [id number] Additional Instructions: Your work-up in the emergency room is negative for any acute findings. Please follow-up with your own doctor in the course of this week or next week. MAUREEN FELTON APRN Dec 10, 2019 14:09
[2019-12-10 14:12] LABS: BASO # 0.1 x10^3/uL (0.0-0.2); BASO % 1 % (0-3); EOS # 0.3 x10^3/uL (0.0-0.7); EOS % 2 % (0-3); HEMATOCRIT 42.6 % (39.0-53.0); HEMOGLOBIN 14.4 g/dL (13.0-17.5); LYMPH # 2.4 x10^3/uL (1.0-4.8); LYMPH % 18 % (24-48); MEAN CORPUSCULAR HEMOGLOBIN 29 pg (25-35); MEAN CORPUSCULAR HGB CONC 34 g/dL (31-37); MEAN CORPUSCULAR VOLUME 86 fL (79-100); MONO # 0.8 x10^3/uL (0.0-1.1); MONO % 6 % (0-9); NEUT % 74 % (31-73); PLATELET COUNT 247 x10^3/uL (140-400); RED BLOOD COUNT 4.94 x10^6/uL (4.30-5.70); RED CELL DISTRIBUTION WIDTH 14.7 % (11.5-14.5); WHITE BLOOD COUNT 13.6 x10^3/uL (4.0-11.0)
[2019-12-10 14:21] LABS: PROTHROMBIN TIME PATIENT 14.5 SEC (11.7-14.0)
[2019-12-10 15:17] LABS: CALCIUM 9.2 mg/dL (8.5-10.1); CREATININE 0.9 mg/dL (0.7-1.3); GFR 83.7
[2019-12-10 15:23] LABS: ALBUMIN 3.9 g/dL (3.4-5.0); ALBUMIN/GLOBULIN RATIO 1.1 (1.0-1.7); MAGNESIUM 1.9 mg/dL (1.8-2.4); TOTAL BILIRUBIN 0.6 mg/dL (0.2-1.0); TOTAL PROTEIN 7.4 g/dL (6.4-8.2)
[2019-12-10 16:44] VITALS: BP 105/52
--- NOTE | 2019-12-10 19:17 | EKG ---
[facility] [address] [place] [address] Test Date: 2019-12-10 Test Time: 13:28:55 Pat Name: LUCILLE MCKENNA Department: Room: Gender: M Branch Director: : 1950 Requested By: MAUREEN FELTON Order Number: [id number] Reading MD: Measurements Intervals [place] Rate: 64 P: NC: QRS: 43 QRSD: 82 T: 0 QT: 428 QTc: 445 Interpretive Statements ATRIAL FIBRILLATION NON SPECIFIC T ABNORMALITY ABNORMAL ECG No previous ECG available for comparison
== END 2019-12-10 17:05 | disposition home or self-care (01) ==
LOC: ER 12:53
DX: F41.9 Anxiety disorder, unspecified (principal); R05 Cough; R09.89 Other specified symptoms and signs involving the circulatory and respiratory systems; M79.10 Myalgia, unspecified site; E86.0 Dehydration; I48.91 Unspecified atrial fibrillation; E11.40 Type 2 diabetes mellitus with diabetic neuropathy, unspecified; E78.00 Pure hypercholesterolemia, unspecified; I10 Essential (primary) hypertension; Z95.5 Presence of coronary angioplasty implant and graft
CPT/HCPCS: 36415; 70450; 71045; 80053; 80307; 82553; 83690; 83735; 83880; 84443; 84484; 85025; 85610; 93005; 96360; 96361; 99285; J7030

== ENCOUNTER 2021-03-18 16:19 | Emergency (ER) | payer MEDICARE ==
[~2021-03-18] VITALS: Ht 175.3 cm; Wt 127.0 kg
[2021-03-18 19:42] LABS: BILIRUBIN,URINE NEGATIVE (NEG); CLARITY,URINE CLEAR; COLOR,URINE YELLOW; NITRITE,URINE NEGATIVE (NEG); PH,URINE 6.5 (<5.0-8.0); PROTEIN,URINE NEGATIVE (NEG-TRACE)
[2021-03-18 20:00] LABS: BACTERIA,URINE 0 /HPF (0-FEW)
[2021-03-18 20:19] LABS: BASO # 0.1 x10^3/uL (0.0-0.2); BASO % 1 % (0-3); EOS # 0.2 x10^3/uL (0.0-0.7); EOS % 2 % (0-3); HEMATOCRIT 42.3 % (39.0-53.0); LYMPH # 2.5 x10^3/uL (1.0-4.8); LYMPH % 18 % (24-48); MEAN CORPUSCULAR HEMOGLOBIN 29 pg (25-35); MEAN CORPUSCULAR HGB CONC 33 g/dL (31-37); MEAN CORPUSCULAR VOLUME 87 fL (79-100); MONO # 1.1 x10^3/uL (0.0-1.1); MONO % 8 % (0-9); NEUT % 72 % (31-73); PLATELET COUNT 271 x10^3/uL (140-400); RED BLOOD COUNT 4.88 x10^6/uL (4.30-5.70); RED CELL DISTRIBUTION WIDTH 14.5 % (11.5-14.5); WHITE BLOOD COUNT 13.9 x10^3/uL (4.0-11.0)
--- NOTE | 2021-03-18 20:23 | PHYS DOC ---
Past Medical History Past Medical History: A-Fib, Anxiety, Diabetes-Type II, High Cholesterol, Hypertension, Other Additional Past Medical Histor: chronic pain,neuropathy,PANIC ATTACKS,SLEEP APNEA Past Surgical History: Angioplasty, Cholecystectomy Additional Past Surgical Histo: ADRENLIN GLAND REMOVED,RIGHT SHOULDER,CARDIAC ABLATION Smoking Status: Never Smoker Alcohol Use: None Drug Use: None General Adult EDM: Chief Complaint: ABDOMINAL PAIN HPI: HPI: Patient is a 70 year old male patient presents with burning with urination, constipation, lower abdominal pain. Patient reports he has had these issues ongoing for the last several weeks, however worsened over the last couple days. States he has had TURP 1 year ago, and he had just seen urology approximately 2 weeks ago, was told he is retaining approximately 50% of his urine. States he has not been monitoring his blood sugar, states when he saw his primary care last his A1c was 7.8, however he has not been checking his blood sugars at home. States he just feels a burning when he is urinating, states he has not noted any urinary frequency however he does feel he has difficulty controlling his urine sometimes. States he is also had approximately 6 pound weight gain in the last week. States his legs do feel little bit more swollen than usual, he does occasionally Forgets to take his water pill. Denies any dyspnea, denies any chest pain. States he has history of a prior left renal cyst removal and he is concerned that it may be coming back as it is causing some more discomfort again. States he has been taking [place] for the urinary discomfort, states it does help him for 5 hours and then he has the discomfort resume again Review of Systems: Review of Systems: Constitutional: Denies fever or chills. [] Eyes: Denies change in visual acuity. [] HENT: Denies nasal congestion or sore throat. [] Respiratory: Denies cough or shortness of breath. [] Cardiovascular: Denies chest pain. Does report his legs feel little more swollen than usual] GI: Denies abdominal pain, nausea, vomiting, bloody stools or diarrhea. [] States he feels a lot more constipated than usual, states he has been taking laxatives in order to deal with his constipation recently : States burning with urination. Denies any penile discharge, denies any urinary frequency. Denies any blood in his urine however he does report he has noticed his urine to be a lot more darker than usual] Musculoskeletal: Denies back pain or joint pain. [] Integument: Denies rash. [] Neurologic: Denies headache, focal weakness or sensory changes. [] Endocrine: Denies polyuria or polydipsia. [] Lymphatic: Denies swollen glands. [] Psychiatric: Denies depression or anxiety. [] Heart Score: C/O Chest Pain: No Risk Factors: Risk Factors: DM, Current or recent (<one month) smoker, HTN, HLP, family history of CAD, obesity. Risk Scores: Score 0 - 3: 2.5% MACE over next 6 weeks - Discharge Home Score 4 - 6: 20.3% MACE over next 6 weeks - Admit for Clinical Observation Score 7 - 10: 72.7% MACE over next 6 weeks - Early Invasive Strategies Allergies: Allergies: Allergies Coded Allergies Type Severity Reaction Last Updated Verified No Known Drug Allergies 05/05/19 No Physical Exam: PE: Constitutional: Well developed, well nourished, no acute distress, non-toxic appearance. [] Conversational obese patient HENT: Normocephalic, atraumatic, bilateral external ears normal, oropharynx moist, no oral exudates, nose normal. [] Eyes: PERRLA, EOMI, conjunctiva normal, no discharge. [] Neck: Normal range of motion, no tenderness, supple, no stridor. [] Cardiovascular:Heart rate regular rhythm, no murmur [] Lungs & Thorax: Bilateral breath sounds clear to auscultation [] Abdomen: Bowel sounds normal, soft, no masses, no pulsatile masses. [] Minimal tenderness noted to right inguinal left inguinal areas minimal discomfort suprapubic Skin: Warm, dry, no erythema, no rash. Genitourinary: No penile lesions noted. No phimosis noted. Foreskin easily retracts. Scrotum enlarged without lesions noted or tenderness noted [] Back: No tenderness, no CVA tenderness. [] Extremities: No tenderness, no cyanosis, no clubbing, ROM intact, 3+ edema To lower extremities [] Neurologic: Alert and oriented X 3, normal motor function, normal sensory function, no focal deficits noted. [] Psychologic: Affect normal, judgement normal, mood normal. [] Current Patient Data: Labs: Laboratory Tests Test 03/18/21 17:30 Urine Collection Type Unknown Urine Color Yellow Urine Clarity Clear Urine pH 6.5 (<5.0-8.0) Urine Specific [place] 1.025 (1.000-1.030) Urine Protein Negative mg/dL (NEG-TRACE) Urine Glucose (UA) >=1000 mg/dL (NEG) Urine Ketones (Stick) Negative mg/dL (NEG) Urine Blood Negative (NEG) Urine Nitrite Negative (NEG) Urine Bilirubin Negative (NEG) Urine Urobilinogen Dipstick 1.0 mg/dL (0.2 mg/dL) Urine Leukocyte Esterase Negative (NEG) Urine RBC 1-2 /HPF (0-2) Urine WBC 1-4 /HPF (0-4) Urine Squamous Epithelial Cells Occ /LPF Urine Bacteria 0 /HPF (0-FEW) Vital Signs: Vital Signs Date Time Temp Pulse Resp B/P (MAP) Pulse Ox O2 Delivery O2 Flow Rate FiO2 03/18/21 17:50 98.4 100 16 149/65 (93) 97 Room Air 98.4 EKG: EKG: normal sinus rhythm without ST changes. per Dr Tirado. normal axis. normal intervals. Teri 128. QRs 82. QTc 455. [] Radiology/Procedures: Radiology/Procedures: PROCEDURE: CT ABD PELV W/ IV CONTRST ONLY CT abdomen pelvis with contrast. HISTORY: Abdominal pain CT abdomen pelvis was done using 75 mL Omnipaque 300 contrast. There are chronic calcifications in the left lower lobe. No acute infiltrates are noted. There is fatty infiltration the liver without a focal lesion. Patient's had a cholecystectomy. Spleen is unremarkable. Right adrenal gland is unremarkable. Left adrenal gland is not definitively identified. There is no focal pancreatic lesion. There is a benign cyst in the left kidney without change. A renal mass is not evident. There is no aortic aneurysm. There is slight edema in the mesentery unchanged from the old study. There is no bowel obstruction. Appendix is normal. There is no free air or free fluid. IMPRESSION: 1. No bowel obstruction or acute finding in the abdomen or pelvis. 2. Fatty change in the liver similar to the old study. 3. Edema in the mesentery similar to the prior study. PQRS Compliance Statement: One or more of the following individualized dose reduction techniques were utilized for this examination: 1. Automated exposure control 2. Adjustment of the mA and/or kV according to patient size 3. Use of iterative reconstruction technique Electronically signed by: Henok Fortune MD (03/18/2021 9:51 PM) [facility] DICTATED and SIGNED BY: HENOK FORTUNE MD[] Course & Med Decision Making: Course & Med Decision Making Pertinent Labs and Imaging studies reviewed. (See chart for details) [] Reviewed imaging and labs with patient, without acute abnormalities. Discussed importance of taking his diuretics, patient does report he has not taken his diuretics for couple days, states he has not good about this. Patient also reports he does not drink very much water usually, states he knows he needs to increase his fluid intake. Patient agreeable to follow-up with urology to further evaluate for any prostate issues causing his urinary difficulties. Patient also advised to increase his fiber intake, consider additional stool softeners and laxatives, or to decrease his hydrocodone use to reduce the amount of narcotics he is taking which may be leading to his constipation and inabilit y to have bowel movements. Patient agreeable to this plan, with no further questions or concerns. States he was just concerned because he did not know if there is something else that was causing his problems today Dragon Disclaimer: Dragon Disclaimer: This electronic medical record was generated, in whole or in part, using a voice recognition dictation system. Departure Departure Impression: Primary Impression: Abdominal pain Qualified Codes: R10.30 - Lower abdominal pain, unspecified Additional Impressions: Chronic congestive heart failure Pedal edema Disposition: HOME / SELF CARE / HOMELESS Condition: GOOD Referrals: LUCILLE CASTANO MD (PCP) Patient Instructions: Abdominal Pain, Urinary Retention, Acute, Male, [id number] Additional Instructions: As we discussed, 1. Make sure you are increasing your fluid intake each day, this will help your stools become more soft. 2. Make sure you are taking your water pills as prescribed every day. 3. Make an appointment with your urologist to further evaluate your prostate 4. Watch your diet and ensure you are following appropriate diabetic diet 5. Follow-up with Dr. Castano in the next week to ensure you are feeling better UMAIR BERG APRN Mar 18, 2021 20:23
[2021-03-18 20:41] LABS: CALCIUM 9.1 mg/dL (8.5-10.1); CREATININE 0.9 mg/dL (0.7-1.3); GFR 83.4; POTASSIUM 4.3 mmol/L (3.5-5.1)
[2021-03-18 20:52] LABS: ALBUMIN/GLOBULIN RATIO 1.3 (1.0-1.7); MAGNESIUM 2.2 mg/dL (1.8-2.4); TOTAL BILIRUBIN 0.5 mg/dL (0.2-1.0); TOTAL PROTEIN 7.1 g/dL (6.4-8.2)
[2021-03-18] MEDS ORDERED: CONTRAST GIVEN. MC PRN (21:30)
--- NOTE | 2021-03-18 21:53 | RAD ---
CT abdomen pelvis with contrast. HISTORY: Abdominal pain CT abdomen pelvis was done using 75 mL Omnipaque 300 contrast. There are chronic calcifications in th e left lower lobe. No acute infiltrates are noted. There is fatty infiltration the liver without a fo brayden lesion. Patient's had a cholecystectomy. Spleen is unremarkable. Right adrenal gland is unremarka ble. Left adrenal gland is not definitively identified. There is no focal pancreatic lesion. There is a benign cyst in the left kidney without change. A renal mass is not evident. There is no aortic ane urysm. There is slight edema in the mesentery unchanged from the old study. There is no bowel obstruc tion. Appendix is normal. There is no free air or free fluid. IMPRESSION: 1. No bowel obstruction or acute finding in the abdomen or pelvis. 2. Fatty change in the liver similar to the old study. 3. Edema in the mesentery similar to the prior study. PQRS Compliance Statement: One or more of the following individualized dose reduction techniques were utilized for this examinat ion: 1. Automated exposure control 2. Adjustment of the mA and/or kV according to patient size 3. Use of iterative reconstruction technique Electronically signed by: Henok Fortune MD (03/18/2021 9:51 PM) [facility]
[2021-03-18] MEDS ORDERED: IOHEXOL 300 MG/ML 100ML VIAL. IV ONE (22:00)
[2021-03-18 22:15] VITALS: BP 144/73
--- NOTE | 2021-03-18 23:29 | EKG ---
[facility] [address] [place] [address] Test Date: 2021-03-18 Test Time: 20:25:02 Pat Name: LUCILLE MCKENNA Department: Room: Gender: Buncher Machine: : [id number] Requested By: UMAIR BERG Order Number: [id number] Reading MD: Measurements Intervals [place] Rate: 72 P: 11 [place]: 200 QRS: 47 QRSD: 82 T: 18 QT: 414 QTc: 455 Interpretive Statements SINUS RHYTHM NORMAL ECG RI6.02 No previous ECG available for comparison
== END 2021-03-18 22:34 | disposition home or self-care (01) ==
LOC: ER 16:19
DX: R10.30 Lower abdominal pain, unspecified (principal); I11.0 Hypertensive heart disease with heart failure; I50.9 Heart failure, unspecified; R60.0 Localized edema; E78.00 Pure hypercholesterolemia, unspecified; I48.91 Unspecified atrial fibrillation; E11.40 Type 2 diabetes mellitus with diabetic neuropathy, unspecified
CPT/HCPCS: 36415; 74177; 80053; 81001; 82010; 83605; 83735; 83880; 84484; 85025; 93005; 99285; Q9967; 23650; 96374; 96375